=== PATIENT | female | born 1995 | race Hispanic/Latino ===

== ENCOUNTER 2022-11-08 22:39 | Emergency (ER) | payer SELFPAY ==
[~2022-11-08] VITALS: Ht 154.9 cm; Wt 84.4 kg
[2022-11-08] MEDS ORDERED: KETOROLAC TROMETHAMINE 60 MG/2 ML VIAL IM ONE (23:00)
[2022-11-08 23:05] LABS: CLARITY,URINE CLOUDY (CLEAR); COLOR,URINE AMBER (YELLOW); KETONES,URINE NEGATIVE (NEGATIVE); LEUKOCYTE ESTERASE ,URINE TRACE (NEGATIVE); NITRITE,URINE NEGATIVE (NEGATIVE); PROTEIN,URINE DIPSTICK 1+ (NEGATIVE); URINE UROBILINOGEN 0.2 mg/dL (0.2 - 1)
[2022-11-08 23:10] LABS: BACTERIA,URINE FEW /HPF; EPITHELIAL CELLS,URINE RARE /LPF; RBC,URINE >50 /HPF (0-5)
[2022-11-09] MEDS ORDERED: CEFDINIR300 MG PO (01:41)
== END 2022-11-09 02:48 | disposition home or self-care (01) ==
LOC: ER 22:43
DX: R30.0 Dysuria (principal); N39.0 Urinary tract infection, site not specified; R31.9 Hematuria, unspecified; R10.12 Left upper quadrant pain
CPT/HCPCS: 71101; 74176; 81001; 81025; 99283; J1885